=== PATIENT | male | born 1950 | race Caucasian/White ===

== ENCOUNTER 2019-06-17 19:29 | Emergency (ER) | payer OTHER ==
--- NOTE | 2019-06-17 19:54 | ED ---
GI/ HPI - HPI Summary HPI Summary: 69 year old male presents with a chief complaint of urinary retention and abdominal pain that started around 16:00 tonight. He took a Flomax and tried to take a hot shower, which provided no relief. Patient states that he has BPH and has had a similar episode in the past approximately 1.5 years ago. no flank pain. no n/v or fevers. is not diabetic. - History of Current Complaint Chief Complaint: EDAbdPain Time Seen by Provider: 06/17/19 19:47 Stated Complaint: GENERAL? Pain Intensity: 10 PMH/Surg Hx/FS Hx/Imm Hx Endocrine/Hematology History: Denies: Hx Diabetes Cardiovascular History: Denies: Hx Hypertension - Immunization History Immunizations Up to Date: Yes Infectious Disease History: Unable to Obtain/Confirm Infectious Disease History: Denies: Traveled Outside the [place] in Last 30 Days - Family History Known Family History: Positive: Non-Contributory - Social History Alcohol Use: None Substance Use Type: Reports: None Smoking Status (MU): Former Smoker Review of Systems Constitutional: Negative Eyes: Negative ENT: Negative Cardiovascular: Negative Respiratory: Negative Positive: Abdominal Pain Positive: see HPI Musculoskeletal: Negative Skin: Negative Neurological: Negative Psychological: Normal All Other Systems Reviewed And Are Negative: Yes Physical Exam Triage Information Reviewed: Yes Vital Signs On Initial Exam: Initial Vitals Temp Pulse Resp BP Pulse Ox 96.8 F 107 20 180/110 98 06/17/19 19:29 06/17/19 19:29 06/17/19 19:29 06/17/19 19:29 06/17/19 19:29 Vital Signs Reviewed: Yes Appearance: Positive: Well-Appearing, No Pain Distress, Well-Nourished Skin: Positive: Warm, Skin Color Reflects Adequate Perfusion, Dry Head/Face: Positive: Normal Head/Face Inspection Eyes: Positive: Normal ENT: Positive: Normal ENT inspection Neck: Positive: Supple, Nontender Respiratory/Lung Sounds: Positive: Clear to Auscultation, Breath Sounds Present Cardiovascular: Positive: Normal, RRR, S1, S2 Abdomen Description: Positive: Nontender, Soft Bowel Sounds: Positive: Present Musculoskeletal: Positive: Normal Neurological: Positive: Normal Psychiatric: Positive: Normal, Affect/Mood Appropriate Procedures - Sedation Patient Received Moderate/Deep Sedation with Procedure: No Diagnostics - Vital Signs Vital Signs Temp Pulse Resp BP Pulse Ox 06/17/19 19:29 96.8 F 107 20 180/110 98 - Laboratory Lab Statement: Any lab studies that have been ordered have been reviewed, and results considered in the medical decision making process. GIGU Course/Dx - Course Course Of Treatment: 69 year old male who presents with urinary retention. Patient has a history of BPH and admits to having a similar episode in the past. Patient was bladder scanned and was found to have > 800 cc of urine. Hudson placed, pain relieved. Patient will be discharged with hudson catheter & follow up at the [facility]. - Diagnoses Differential Diagnoses - Male: Bladder Dysfunction, BPH, Urinary Tract Infection Provider Diagnoses: Urinary obstruction Discharge ED - Sign-Out/Discharge Documenting (check all that apply): Patient Departure - Discharge Plan Condition: Good Disposition: HOME Patient Education Materials: Hudson Catheter Placement and Care (ED) Additional Instructions: keep hudson in place follow up with urology Return to ED if develop any new or worsening symptoms - Billing Disposition and Condition Condition: GOOD Disposition: Home
[2019-06-17 20:35] VITALS: BP 151/86
[2019-06-17 20:55] LABS: Urine Appearance Clear; Urine Bilirubin Negative (Negative); Urine Blood 2+ (Negative); Urine Color Straw; Urine Glucose Negative (Negative); Urine Ketones Trace (Negative); Urine Nitrite Negative (Negative); Urine Protein Negative (Negative); Urine Specific Gravity 1.006 (1.010-1.030); Urine Urobilinogen Negative (Negative)
[2019-06-17 20:59] LABS: Urine Bacteria Absent (Absent); Urine Red Blood Cell 3+(>10/hpf) (Absent); Urine White Blood Cell Absent (Absent)
== END 2019-06-17 20:06 | disposition home or self-care (01) ==
LOC: ED 19:29
DX: N40.1 Benign prostatic hyperplasia with lower urinary tract symptoms (principal); N13.8 Other obstructive and reflux uropathy; Z87.891 Personal history of nicotine dependence
CPT/HCPCS: 51702; 81003; 81015; 99281

== ENCOUNTER 2019-06-20 08:51 | Emergency (ER) | payer OTHER ==
--- NOTE | 2019-06-20 09:31 | ED ---
GI/ HPI - HPI Summary HPI Summary: Patient is a 69-year-old male who presents emergency Department requesting his Hudson catheter to be removed. Patient was seen in the ER 3 days ago for urinary retention and had Hudson catheter placed. Patient states he has a history of BPH and has had similar symptoms in the past. Currently taking Flomax. Patient states he typically sees a urologist at [facility] in [place] but is currently living in a cabin in [place]. Patient states that today he accidentally tugged on catheter and urine came bloody. Patient denies fever, abdominal pain, chills, vomiting. Symptoms are mild in severity. No current modifying factors. - History of Current Complaint Chief Complaint: EDUrogenitalProblems Time Seen by Provider: 06/20/19 09:08 Stated Complaint: URINARY CATHETER REMOVAL PER PT Hx Obtained From: Patient Pain Intensity: 0 - Allergy/Home Medications Allergies/Adverse Reactions: Allergies Allergy/AdvReac Type Severity Reaction Status Date / Time No Known Allergies Allergy Verified 06/20/19 08:58 Home Medications: Home Medications Tamsulosin CAP* [Flomax CAP*] 0.4 mg PO BEDTIME 06/20/19 [History Confirmed ] PMH/Surg Hx/FS Hx/Imm Hx Previously Healthy: Yes Endocrine/Hematology History: Denies: Hx Diabetes Cardiovascular History: Denies: Hx Hypertension Infectious Disease History: No Infectious Disease History: Denies: Traveled Outside the [place] in Last 30 Days - Family History Known Family History: Positive: Non-Contributory - Social History Occupation: Retired Lives: Alone Alcohol Use: None Substance Use Type: Reports: None Smoking Status (MU): Former Smoker Review of Systems Constitutional: Negative Negative: Fever Gastrointestinal: Negative Negative: Abdominal Pain Positive: hematuria. Negative: dysuria All Other Systems Reviewed And Are Negative: Yes Physical Exam Triage Information Reviewed: Yes Vital Signs On Initial Exam: Initial Vitals Temp Pulse Resp BP Pulse Ox 98.7 F 60 19 170/93 98 06/20/19 08:54 06/20/19 08:54 06/20/19 08:54 06/20/19 08:54 06/20/19 08:54 Vital Signs Reviewed: Yes Appearance: Positive: Well-Appearing - Pt. sitting on bed in NAD. Skin: Positive: Warm, Dry Head/Face: Positive: Normal Head/Face Inspection Eyes: Positive: Normal, EOMI Neck: Positive: Supple Respiratory/Lung Sounds: Positive: Clear to Auscultation, Breath Sounds Present Cardiovascular: Positive: Normal, RRR Abdomen Description: Positive: Nontender, Soft Neurological: Positive: Normal, CN Intact II-III Psychiatric: Positive: Affect/Mood Appropriate Procedures - Sedation Patient Received Moderate/Deep Sedation with Procedure: No Diagnostics - Vital Signs Vital Signs Temp Pulse Resp BP Pulse Ox 06/20/19 08:54 98.7 F 60 19 170/93 98 - Laboratory Lab Statement: Any lab studies that have been ordered have been reviewed, and results considered in the medical decision making process. GIGU Course/Dx - Course Course Of Treatment: Pt. with hudson. Bloody urine noted in bag after pt. states he accidently tugged on catheter. Bag was empty and urine started running clear. Urine culture sent. Explained to pt. it is best for him to see urology to have catheter removed. Pt. called the [facility] and states he is able to see [facility] in [place]. Pt. dc to f.u with urology kallie. Pt. understands and agrees with plan. - Diagnoses Provider Diagnoses: Presence of indwelling Hudson catheter Discharge ED - Sign-Out/Discharge Documenting (check all that apply): Patient Departure - Discharge Plan Condition: Good Disposition: HOME Patient Education Materials: Hudson Catheter Placement and Care (ED) Referrals: [facility] [Outside] Zoran Peñaloza MD [Medical Doctor] - Additional Instructions: Please schedule a follow up appointment with urology Return to ER if symptoms change or worsen - Billing Disposition and Condition Condition: GOOD Disposition: Home
[2019-06-20 09:55] LABS: Urine Appearance Cloudy; Urine Bilirubin Negative (Negative); Urine Blood 3+ (Negative); Urine Glucose Negative (Negative); Urine Ketones Negative (Negative); Urine Nitrite Negative (Negative); Urine Protein 2+(100 mg/dL) (Negative); Urine Urobilinogen Negative (Negative)
[2019-06-20 09:57] LABS: Urine Bacteria Absent (Absent); Urine Color Red; Urine Red Blood Cell 3+(>10/hpf) (Absent); Urine White Blood Cell Trace(0-5/hpf) (Absent)
[2019-06-20 10:42] VITALS: BP 169/87
== END 2019-06-20 10:42 | disposition home or self-care (01) ==
LOC: ED 08:51
DX: Z46.6 Encounter for fitting and adjustment of urinary device (principal); N40.0 Benign prostatic hyperplasia without lower urinary tract symptoms; Z87.891 Personal history of nicotine dependence; Z79.899 Other long term (current) drug therapy
CPT/HCPCS: 81003; 81015; 87086; 99282